=== PATIENT | female | born 1980 | race Caucasian/White ===

== ENCOUNTER 2016-12-03 18:29 | Emergency (ER) | payer OTHER ==
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
[~2016-12-03 18:29] MED LIST: KLONOPIN0.5 M3 PO; PROZAC40 MG PO; TESSALON PERLE100 M1; ZOFRAN ODT4 MG
== END 2016-12-03 19:08 | disposition home or self-care (01) ==
LOC: SED 18:29
DX: S46.912A Strain of unspecified muscle, fascia and tendon at shoulder and upper arm level, left arm, initial encounter (principal); G43.909 Migraine, unspecified, not intractable, without status migrainosus; F41.9 Anxiety disorder, unspecified; V49.00XA Driver injured in collision with unspecified motor vehicles in nontraffic accident, initial encounter; Z88.1 Allergy status to other antibiotic agents
CPT/HCPCS: 73030; 99283